=== PATIENT | female | born 1940 ===

== ENCOUNTER 2017-07-16 08:54 | Day surgery (SDC) | payer MEDICARE ==
--- NOTE | 2017-07-16 10:40 | CP.SDSHP ---
Same Day Surgery H & P - History Proposed Procedure: US guided FNA of right and left thyroid nodules Pre-Op Diagnosis: right and left thyroid nodules - Allergies Allergies: Allergies No Known Allergies Allergy (Verified 07/10/17 08:46) - Impression Impression: Multiple enlarged left and right thyroid nodules. Plan US guided FNA of right and left thyroid nodules Pt. Evaluated Today:Candidate for Anesthesia & Procedure: No - Date & Time Date: 07/16/17 Time: 11:00 Short Stay Discharge - Short Stay Discharge Admitting Diagnosis/Reason for Visit: THYROID NODULE Disposition: HOME/ ROUTINE
--- NOTE | 2017-07-16 10:43 | PCM.SURG1 ---
Surgeon's Initial Post Op Note - Surgeon's Notes Surgeon: Cory Mancilla MD Saw Superintendent: NONE Type of Anesthesia: Local Pre-Operative Diagnosis: right and left thyroid nodules Operative Findings: 2.3 cm complex left lower pole nodule, 2.1 cm complex solid left midpole nodule, 2 cm right upper pole nodule. Post-Operative Diagnosis: Right and left thyroid nodules Operation Performed: US guided FNA. Four passes were made into each nodule with a 25 g needle under US guidance. Specimen/Specimens Removed: 25 g FNA x 4 passes per nodule Estimated Blood Loss: EBL {In ML}: 1 Blood Products Given: N/A Drains Used: No Drains Post-Op Condition: Good Date of Surgery/Procedure: 07/16/17 Time of Surgery/Procedure: 10:40
--- NOTE | 2017-07-16 13:54 | US ---
PROCEDURE: Date of Procedure: 07/16/2017 PROCEDURE: 1. Ultrasound guided FNA of left MIDPOLE thyroid nodule 2. Ultrasound guided FNA of left LOWER POLE thyroid nodule 3. Ultrasound guided FNA of RIGHT thyroid nodule, 3. Ultrasound guidance for FNA, [id number] Medications: 6cc 1% Lidocaine HISTORY: Enlarged thyroid nodules. TECHNIQUE: Following informed consent and procedure time-out, a limited ultrasound patient's neck confirmed the presence of a 1.4 cm complex solid right thyroid nodule. There are 2 large left thyroid nodule measuring 2.1 centimeter in the mid pole and 2.3 centimeter and a lower pleura but predominant solid. After the patient's neck was prepped and draped in the usual sterile fashion, the skin was anesthetized with 1% lidocaine. Ultrasound-guided fine needle aspiration was then performed of the left lower pole thyroid nodule followed by the left midpole nodule. A total of 4 passes were made into the nodule with 25 gauge needle under ultrasound guidance. The FNA specimen was sent for routine pathology. Ultrasound guided FNA was then performed of the dominant right thyroid nodule. Again 4 passes were made into the nodule with 25 gauge needle. The FNA specimen was sent for routine pathology. Post biopsy ultrasound showed no hematoma. IMPRESSION: Ultrasound-guided FNA of the dominant right and left lower pole and mid pole thyroid nodules.
== END 2017-07-16 11:30 | disposition home or self-care (01) ==
LOC: C.SPRAD 08:54
PROVIDERS: ATTEND Radiology Vascular & Interventional Radiology
DX: E04.2 Nontoxic multinodular goiter (principal)